=== PATIENT | female | born 1970 | race Caucasian/White ===

== ENCOUNTER 2019-11-05 | Day surgery (SDC) | payer MEDICAID, SELFPAY | END 2019-11-05 23:00 | disposition home or self-care (01) | LOC: GILAB 05-29 14:53 | PROVIDERS: Family Provider Internal Medicine; PCP Internal Medicine; Visit Provider Internal Medicine | DX: Z53.9 Procedure and treatment not carried out, unspecified reason (principal) | CPT/HCPCS: J7030 ==

== ENCOUNTER → 2019-11-18 16:24 | Outpatient (BNVA) | payer MEDICAID, SELFPAY | PROVIDERS: Family Provider Internal Medicine; PCP Internal Medicine; Visit Provider Internal Medicine | DX: D50.9 Iron deficiency anemia, unspecified (principal); J44.9 Chronic obstructive pulmonary disease, unspecified; I63.9 Cerebral infarction, unspecified | CPT/HCPCS: 80048; 85025 ==

== ENCOUNTER → 2021-04-25 16:19 | Outpatient (BNVA) | payer MEDICAID, SELFPAY | PROVIDERS: Family Provider Internal Medicine; PCP Internal Medicine; Visit Provider Internal Medicine | DX: Z20.822 Contact with and (suspected) exposure to COVID-19 (principal) | CPT/HCPCS: 87635 ==

== ENCOUNTER → 2021-08-13 11:43 | Outpatient (BNVA) | payer MEDICAID, SELFPAY | PROVIDERS: Family Provider Internal Medicine; PCP Internal Medicine; Referring Provider Internal Medicine; Visit Provider Specialist | DX: G40.909 Epilepsy, unspecified, not intractable, without status epilepticus (principal); F17.200 Nicotine dependence, unspecified, uncomplicated | CPT/HCPCS: 99204; 99205 ==

== ENCOUNTER → 2021-09-04 10:37 | Outpatient (BNVA) | payer MEDICAID, SELFPAY | PROVIDERS: Family Provider Internal Medicine; PCP Internal Medicine; Referring Provider Specialist; Visit Provider Specialist | DX: R56.9 Unspecified convulsions (principal); F17.200 Nicotine dependence, unspecified, uncomplicated | CPT/HCPCS: 95816 ==

== ENCOUNTER → 2022-02-11 08:30 | Outpatient (BNVA) | payer MEDICAID, SELFPAY | PROVIDERS: Family Provider Internal Medicine; PCP Internal Medicine; Visit Provider Specialist | DX: G40.219 Localization-related (focal) (partial) symptomatic epilepsy and epileptic syndromes with complex partial seizures, intractable, without status epilepticus (principal); I69.322 Dysarthria following cerebral infarction; I69.320 Aphasia following cerebral infarction; I69.351 Hemiplegia and hemiparesis following cerebral infarction affecting right dominant side; Z91.14 Patient's other noncompliance with medication regimen; F17.200 Nicotine dependence, unspecified, uncomplicated | CPT/HCPCS: 99214 ==

== ENCOUNTER 2022-03-19 16:35 | Outpatient (CLI) | payer MEDICAID, SELFPAY ==
--- NOTE | 2022-03-19 16:42 | XRR_ITS ---
PROCEDURE INFORMATION: Exam: XR Chest Exam date and time: 03/19/2022 4:49 PM Age: 51 years old Clinical indication: Pain; Angina pectoris; Patient HX: Cp, HX of stroke; Additional info: Wl in a smoker TECHNIQUE: Imaging protocol: XR of the chest. Views: 2 views. COMPARISON: CR Shoulder 2+ views RIGHT* [id number] 12/30/2017 5:22 PM FINDINGS: Lungs: Unremarkable. No consolidation. Pleural spaces: Unremarkable. No pleural effusion. No pneumothorax. Heart/Mediastinum: Unremarkable. No cardiomegaly. Bones/joints: Unremarkable. XR/XR chest 2V* [id number] IMPRESSION: No acute findings.
== END 2022-03-19 16:36 | disposition home or self-care (01) ==
PROVIDERS: PCP Internal Medicine; Visit Provider Internal Medicine
DX: R63.4 Abnormal weight loss (principal)
CPT/HCPCS: 71046; 80053; 82607; 83550; 84443; 85025; 85651

== ENCOUNTER 2022-04-29 08:07 | Day surgery (SDC) | payer MEDICAID, SELFPAY ==
[2022-04-05 09:41] VITALS: BMI 16.8
[2022-04-29 08:32] VITALS: BP 127/81; PULSE 73; RESP 18; TEMP 36.5; O2SAT 98
[2022-04-29 08:45] VITALS: BP 127/81; PULSE 73; RESP 18; TEMP 36.5; O2SAT 99
[2022-04-29 08:52] LABS: OR HCG Qualitative Urine Negative (Negative)
--- NOTE | 2022-04-29 08:56 | P.ANESASSM_ITS ---
Pre-Anesthetic Assessment Height/Weight: Height 1.55 m Weight 40.37 kg Temp Pulse Resp BP Pulse Ox 97.7 F 73 18 127/81 99 04/29/22 08:45 04/29/22 08:45 04/29/22 08:45 04/29/22 08:45 04/29/22 08:45 Operation Date: 04/29/22 09:15 Proposed Procedures p EGD and Colonoscopy [id number],D64.9(Not Applicable) - Semaj Purvis MD s Colonoscopy(Not Applicable) - Semaj Purvis MD Familial anesthetic complications: None Was Beta Angelina taken within 24 hours: N/A Was Clonidine taken within 24 hours: N/A Last intake: Intake Last Liquid Date 04/28/22 Last Liquid Time 23:00 Last Solid Date 04/27/22 Last Solid Time 19:00 Social Tobacco and No alcohol Exam alert, oriented x 3, clear to auscultation bilaterally and regular rate & rhythm Airway Mallampati: Class II Dentition: full Pulmonary Chronic Obstructive Pulmonary Disease CV/HEM Hypertension GI Gastroesophageal Reflux Disease Neuropsych Cerebrovascular Accident and Seizure Anesthetic Plan ASA status: 4 Anesthesia: MAC Risk of > 500 ml blood loss (7ml/kg in children): No Medications/Allergies Home Medications Medication Instructions Recorded Confirmed Last Taken Type quetiapine 25 mg tablet (Seroquel) 12.5 mg PO BID 11/04/19 04/29/22 Unknown History amlodipine 5 mg tablet 5 mg PO DAILY #30 tab 04/24/20 04/29/22 Unknown Rx prednisone 20 mg tablet 20 mg PO DAILY #30 tab 07/21/20 04/29/22 Unknown Rx carvedilol 25 mg tablet 25 mg PO BID #60 tab 10/23/21 04/29/22 Unknown Rx ibuprofen 800 mg tablet 800 mg PO Q8H PRN #90 tab 11/23/21 04/29/22 Unknown Rx pantoprazole 40 mg tablet,delayed 40 mg PO QAM #30 tab 02/04/22 04/29/22 Unknown Rx release lorazepam 2 mg tablet 2 mg PO DAILY PRN #60 tab 02/11/22 04/29/22 Unknown Rx zonisamide 100 mg capsule 100 mg PO BID #60 cap 02/11/22 04/29/22 04/28/22 06:00 Rx (Zonegran) clonazepam 1 mg tablet 1 mg PO BID PRN #60 tab 02/19/22 04/29/22 Unknown Rx albuterol sulfate 90 mcg/actuation 2 puff INHALATION Q4H PRN #8.5 gm 04/19/22 04/29/22 Unknown Rx aerosol inhaler (ProAir HFA) Allergies Allergy/AdvReac Type Severity Reaction Status Date / Time erythromycin base Allergy ALGY-Rash Verified 04/29/22 08:56 hydromorphone [From Dilaudid] Allergy ADR-Nausea Verified 04/29/22 08:56 [facility] [place] Anesthesia Medical History (System 04/12/22 @ 13:45 by Radha Nash) Anemia COPD (chronic obstructive pulmonary disease) CVA (cerebral vascular accident) Hepatitis C Social History (System 04/12/22 @ 13:45 by Radha Nash) Smoking and tobacco status: current every day smoker (1 pack a day) Alcohol intake: never History of recent travel: No Female Reproductive History Date of last menstrual period: 03/13/22 Data Anesthesia Cardiac Studies: No Data to Display
[2022-04-29] MEDS: sodium chloride 0.9% 1,000 ML 30 ML IV (08:59)
--- NOTE | 2022-04-29 09:42 | P.HP_ITS ---
Same Day Surgery H&P Indication for Procedure/HPI DATE OF PROCEDURE: April 29, 2022 CHIEF COMPLAINT/INDICATIONFOR SURGICAL PROCEDURE: Iron deficiency anemia PREOP DIAGNOSIS: Iron deficiency anemia PLANNED PROCEDURE: Operation Date: 04/29/22 09:15 Proposed Procedures p EGD and Colonoscopy [id number],D64.9(Not Applicable) - Semaj Purvis MD s Colonoscopy(Not Applicable) - Semaj Purvis MD Medications/Allergies* Home Medications Medication Instructions Recorded Confirmed Type quetiapine 25 mg tablet (Seroquel) 12.5 mg PO BID 11/04/19 04/29/22 History Allergies/Adverse Reactions Allergy/AdvReac Type Severity Reaction Status Date / Time erythromycin base Allergy ALGY-Rash Verified 04/29/22 08:56 hydromorphone [From Dilaudid] Allergy ADR-Nausea Verified 04/29/22 08:56 Current Medications: Generic Name Dose Route Start Last Admin Trade Name Freq PRN Reason Stop Dose Admin Sodium Chloride 1,000 mls @ 30 mls/hr 04/29/22 08:15 04/29/22 08:59 Sodium Chloride 0.9% IV 04/30/22 08:14 30 mls/hr .Q24H KAMILLA Administration Pertinent History/Comorbid Conditions* Medical History (Updated 03/19/22 @ 16:02 by Semaj Purvis MD) Anemia COPD (chronic obstructive pulmonary disease) CVA (cerebral vascular accident) Hepatitis C Social History Smoking and tobacco status: current every day smoker (1 pack a day) Alcohol intake: never History of recent travel: No Pertinent Exam Findings alert, oriented x 3, clear to auscultation bilaterally, regular rate & rhythm, operative site marked and procedure specific exam findings Recommendations Surgery/Procedure today Coding Level of Care Code Acute Director Facilities Maintenance for Laurie Bean
[2022-04-29 10:12] VITALS: BP 132/82; PULSE 66; RESP 20; TEMP 36.1; O2SAT 100
--- NOTE | 2022-04-29 10:12 | ANE.PACU2 ---
Inpatient post-anesthesia follow up: Airway intact: Yes Vital signs: Temperature 97.7 F Pulse Rate 73 Respiratory Rate 18 Blood Pressure 127/81 Pulse Oximetry 99 Oxygen Delivery Me thod Room Air Oxygen Flow Rate Fraction of Inspir ed Oxygen Hydration adequate: Yes Nausea and vomiting: No Pain level: 1 Mental status: Baseline
[2022-04-29 10:35] VITALS: BP 146/98; PULSE 69; RESP 18; O2SAT 97
[2022-04-29] MEDS: iron sucrose 200 MG in sodium chloride 0.9% (100 ml) 100 ML 220 MG IV (11:11)
== END 2022-04-29 11:49 | disposition home or self-care (01) ==
PROVIDERS: Anesthesiology; PCP Internal Medicine; Visit Provider Internal Medicine
PROC: 0DJ08ZZ Inspection of Upper Intestinal Tract, Via Natural or Artificial Opening Endoscopic (ICD-10-PCS; CPT 43235; principal; 2022-04-29 09:15)
PROC: 0DJD8ZZ Inspection of Lower Intestinal Tract, Via Natural or Artificial Opening Endoscopic (ICD-10-PCS; CPT 45378; 2022-04-29 09:15)
DX: D64.9 Anemia, unspecified (principal); J44.9 Chronic obstructive pulmonary disease, unspecified; Z86.73 Personal history of transient ischemic attack (TIA), and cerebral infarction without residual deficits; Z86.19 Personal history of other infectious and parasitic diseases; I10 Essential (primary) hypertension; K21.9 Gastro-esophageal reflux disease without esophagitis; F17.210 Nicotine dependence, cigarettes, uncomplicated
CPT/HCPCS: 43235; 45378; 81025; 84703; J1756; J2704; J7030

== ENCOUNTER → 2022-05-07 11:57 | Day surgery (SDC) | payer MEDICAID, SELFPAY ==
[2022-05-07] MEDS: iron sucrose 200 MG in sodium chloride 0.9% (100 ml) 100 ML 220 MG IV (12:15)
[2022-05-07 12:26] VITALS: BP 159/95; PULSE 64; RESP 18; TEMP 36.3; O2SAT 99
== END ==
PROVIDERS: PCP Internal Medicine; Visit Provider Internal Medicine
DX: E61.1 Iron deficiency (principal)
CPT/HCPCS: 96365; J1756